=== PATIENT | female | born 1950 | race Caucasian/White ===

== ENCOUNTER 2020-04-22 10:14 | Inpatient (IN) ==
[2020-04-22 10:49] LABS: ABS Basophils 0.1 10^3/ul (0-0.2); ABS Lymphocytes 0.3 10^3/ul (1.0-4.8); ABS Monocytes 0.9 10^3/ul (0-0.8); Eosinophil % 0.1 %; Hematocrit 33 % (35-47); Hemoglobin 11.1 g/dL (12.0-16.0); Mean Corpuscular HGB Conc 33 g/dL (31-36); Mean Corpuscular Hemoglobin 31 pg (27-31); Mean Corpuscular Volume 92 fL (80-97); Mean Platelet Volume 6.9 fL (7.4-10.4); Platelet Count 202 10^3/uL (150-450); Red Blood Count 3.63 10^6 /uL (3.70-4.87); Red Cell Distribution Width 16 % (10-15); White Blood Count 15.2 10^3/uL (3.5-10.8)
[2020-04-22 10:59] LABS: Activated Partial Thrombo Time 30.7 seconds (26.0-38.0); INR 2.22 (0.82-1.09)
[2020-04-22 11:08] LABS: Troponin I 0.01 ng/mL (<0.03)
[2020-04-22 11:10] LABS: CKMB ng/mL 2.4 ng/mL (0.6-6.3)
[2020-04-22 11:17] LABS: Albumin 3.1 g/dL (3.2-5.2); Albumin/Globulin Ratio 0.9 (1-3); BUN/Creatinine Ratio 17.4 (8-20); C Reactive Protein 121.8 mg/L (<8.01); Calcium 9.1 mg/dL (8.6-10.3); EGFR African American 102.4 (>60); EGFR Non-African American 84.6 (>60); Globulin 3.3 g/dL (2-4); Potassium 3.8 mmol/L (3.5-5.0); Total Bilirubin 0.6 mg/dL (0.2-1.0); Total Protein 6.4 g/dL (6.4-8.9)
[2020-04-22] MEDS ORDERED: Azithromycin 500 mg/250 ml NS 500 MG/250 ML BAG IVPB ONE (12:08)
[2020-04-22] MEDS ORDERED: cefTRIAXone 1 gm/50 mL NS BAG 1 GM/50 ML BAG IV ONE (12:08)
[2020-04-22] MEDS ORDERED: Albuterol/Ipratropium NEB.SOL (2.5/0.5 MG) 3 ML NEB.SOLN INH ONE (12:23)
[2020-04-22 13:16] LABS: Urine Appearance Clear; Urine Bilirubin Negative (Negative); Urine Blood 2+ (Negative); Urine Color Yellow; Urine Glucose Negative (Negative); Urine Ketones Negative (Negative); Urine Nitrite Negative (Negative); Urine Protein Negative (Negative); Urine Specific Gravity 1.009 (1.010-1.030); Urine Urobilinogen Negative (Negative)
[2020-04-22 13:36] LABS: Urine Bacteria Absent (Absent); Urine Red Blood Cell 3+(>10/hpf) (Absent); Urine Squamous Epithelial Cell Present (Absent); Urine White Blood Cell Trace(0-5/hpf) (Absent)
[2020-04-22] MEDS ORDERED: NS 0.9% IV ONE (14:15)
[2020-04-22] MEDS: Cefepime 2 GM in Dextrose(*) 2 GM/50 ML BAG IV SCH (15:47)
[2020-04-22] MEDS ORDERED: NS 0.9% 1000 ml BAG 1,000 ML IV ONE (17:23)
[2020-04-22] MEDS: Mometasone/Formoter 200/5 MDI INH SCH (20:03)
[2020-04-22] MEDS: Morphine ER 30 mg TAB (*) ** extended release PO SCH (20:03)
[2020-04-22] MEDS ORDERED: NS 0.9% 500 ml BAG 500 ML IV ONE (21:09)
[2020-04-22] MEDS ORDERED: Vancomycin(*) 1,000 MG in NS 0.9% 250 ml 250 ML IVPB ONE (21:12)
[2020-04-22] MEDS: LORazepam 0.5 mg TAB (*) PO PRN (21:45)
[2020-04-22] MEDS ORDERED: Vancomycin per Pharmacy 1 EA NOTE FOLLOW UP SCH (22:00)
[2020-04-22] MEDS ORDERED: Vancomycin(*) 750 MG in NS 0.9% 250 ml 250 ML IVPB ONE (22:00)
[2020-04-23] MEDS ORDERED: NS 0.9% 500 ml BAG 500 ML IV ONE (00:50)
[2020-04-23] MEDS: Cefepime 2 GM in Dextrose(*) 2 GM/50 ML BAG IV SCH ×2 (03:03→15:34)
[2020-04-23] MEDS: Ondansetron 4 mg VIAL 2 MG/ML 2 ml VIAL IV PRN ×2 (03:41→16:04)
[2020-04-23] MEDS: LORazepam 0.5 mg TAB (*) PO PRN (03:41)
[2020-04-23 04:52] LABS: ABS Lymphocytes 0.3 10^3/ul (1.0-4.8); ABS Monocytes 0.8 10^3/ul (0-0.8); Eosinophil % 0.2 %; Hematocrit 30 % (35-47); Hemoglobin 9.9 g/dL (12.0-16.0); Lymphocyte % 2.5 %; Mean Corpuscular HGB Conc 33 g/dL (31-36); Mean Corpuscular Hemoglobin 31 pg (27-31); Mean Corpuscular Volume 92 fL (80-97); Mean Platelet Volume 7.2 fL (7.4-10.4); Platelet Count 181 10^3/uL (150-450); Red Blood Count 3.23 10^6 /uL (3.70-4.87); Red Cell Distribution Width 16 % (10-15); White Blood Count 13.1 10^3/uL (3.5-10.8)
[2020-04-23 05:14] LABS: BUN/Creatinine Ratio 17.5 (8-20); EGFR African American 127.6 (>60); EGFR Non-African American 105.5 (>60); Potassium 3.4 mmol/L (3.5-5.0)
[2020-04-23] MEDS ORDERED: VANCOMYCIN IVPB SCH (06:00)
[2020-04-23] MEDS ORDERED: NS 0.9% IVPB SCH (06:00)
[2020-04-23] MEDS: KCL 10 MEQ/50 ML IVPREMIX 10 MEQ/50 ML BAG IV SCH ×3 (06:03→10:01)
[2020-04-23] MEDS: Mometasone/Formoter 200/5 MDI INH SCH (07:55)
[2020-04-23] MEDS: Morphine ER 30 mg TAB (*) ** extended release PO SCH ×2 (08:02→20:57)
[2020-04-23] MEDS ORDERED: Furosemide 20 mg/2 ml IV VIAL IV SLOW PU ONE (09:00)
[2020-04-23] MEDS: Vancomycin(*) 500 MG in NS 0.9% 250 ml 250 ML IVPB SCH ×2 (15:34→22:06)
[2020-04-23] MEDS ORDERED: LORazepam 0.5 mg TAB (*) PO PRN (16:11)
[2020-04-24] MEDS: Mometasone/Formoter 200/5 MDI INH SCH ×3 (00:44→19:49)
[2020-04-24] MEDS: Cefepime 2 GM in Dextrose(*) 2 GM/50 ML BAG IV SCH ×2 (03:15→15:04)
[2020-04-24 05:11] LABS: ABS Lymphocytes 0.3 10^3/ul (1.0-4.8); ABS Monocytes 0.9 10^3/ul (0-0.8); Eosinophil % 0.3 %; Hematocrit 31 % (35-47); Lymphocyte % 2.5 %; Mean Corpuscular HGB Conc 33 g/dL (31-36); Mean Corpuscular Hemoglobin 30 pg (27-31); Mean Corpuscular Volume 93 fL (80-97); Mean Platelet Volume 7.1 fL (7.4-10.4); Platelet Count 191 10^3/uL (150-450); Red Blood Count 3.33 10^6 /uL (3.70-4.87); Red Cell Distribution Width 16 % (10-15); White Blood Count 13.3 10^3/uL (3.5-10.8)
[2020-04-24 05:29] LABS: BUN/Creatinine Ratio 19.3 (8-20); Calcium 8.5 mg/dL (8.6-10.3); EGFR African American 127.6 (>60); EGFR Non-African American 105.5 (>60); Potassium 3.7 mmol/L (3.5-5.0)
[2020-04-24] MEDS ORDERED: Vancomycin Trough Check NOTE FOLLOW UP ONE (05:30)
[2020-04-24] MEDS: Vancomycin(*) 500 MG in NS 0.9% 250 ml 250 ML IVPB SCH ×3 (06:15→21:08)
[2020-04-24] MEDS: Morphine ER 30 mg TAB (*) ** extended release PO SCH ×2 (08:24→20:41)
[2020-04-24] MEDS: Ondansetron 4 mg VIAL 2 MG/ML 2 ml VIAL IV PRN ×2 (13:44→20:45)
[2020-04-24] MEDS: Morphine ORAL CONCENTRATE 5 MG/0.25 ML ORAL.SYRIN PO PRN (16:41)
[2020-04-24] MEDS: LORazepam 0.5 mg TAB (*) PO PRN (19:20)
[2020-04-25] MEDS: Morphine ORAL CONCENTRATE 5 MG/0.25 ML ORAL.SYRIN PO PRN ×6 (00:33→12:50)
[2020-04-25] MEDS: LORazepam 0.5 mg TAB (*) PO PRN ×2 (01:34→05:18)
[2020-04-25] MEDS: Albuterol 2.5mg/3 ml (0.083%) NEB.SOLN INH PRN (01:44)
[2020-04-25] MEDS: Cefepime 2 GM in Dextrose(*) 2 GM/50 ML BAG IV SCH ×2 (02:59→15:16)
[2020-04-25] MEDS: Vancomycin(*) 500 MG in NS 0.9% 250 ml 250 ML IVPB SCH (05:20)
[2020-04-25 05:26] LABS: ABS Eosinophils 0.1 10^3/ul (0-0.6); ABS Lymphocytes 0.4 10^3/ul (1.0-4.8); ABS Monocytes 0.7 10^3/ul (0-0.8); Eosinophil % 0.4 %; Hematocrit 30 % (35-47); Hemoglobin 9.8 g/dL (12.0-16.0); Mean Corpuscular HGB Conc 33 g/dL (31-36); Mean Corpuscular Hemoglobin 31 pg (27-31); Mean Corpuscular Volume 92 fL (80-97); Mean Platelet Volume 7.1 fL (7.4-10.4); Nucleated Red Blood Cells % 0.1; Platelet Count 191 10^3/uL (150-450); Red Cell Distribution Width 16 % (10-15); White Blood Count 12.8 10^3/uL (3.5-10.8)
[2020-04-25 05:41] LABS: BUN/Creatinine Ratio 21.8 (8-20); Calcium 8.7 mg/dL (8.6-10.3); EGFR Non-African American 109.9 (>60); Potassium 3.5 mmol/L (3.5-5.0)
[2020-04-25] MEDS: Morphine ER 30 mg TAB (*) ** extended release PO SCH ×3 (07:22→23:05)
[2020-04-25 07:39] LABS: Albumin 2.7 g/dL (3.2-5.2); Globulin 2.8 g/dL (2-4); Magnesium 1.7 mg/dL (1.9-2.7); Phosphorus 2.5 mg/dL (2.5-5.0); Total Bilirubin 0.5 mg/dL (0.2-1.0); Total Protein 5.5 g/dL (6.4-8.9)
[2020-04-25] MEDS: Mometasone/Formoter 200/5 MDI INH SCH ×2 (08:11→19:03)
[2020-04-25] MEDS ORDERED: Enoxaparin 40 MG/0.4 ML SYR(*) SUBCUT ONE (09:41)
[2020-04-25] MEDS ORDERED: Morphine ORAL CONCENTRATE 5 MG/0.25 ML ORAL.SYRIN PO ONE (10:27)
[2020-04-25] MEDS ORDERED: Morphine ER 30 mg TAB (*) ** extended release PO SCH ×3 (11:00→14:00)
[2020-04-25] MEDS: LORazepam 0.5 mg TAB (*) PO SCH ×2 (14:11→23:40)
[2020-04-25] MEDS ORDERED: Morphine ER 15 mg (*) ** extended release PO SCH (18:00)
[2020-04-25] MEDS: Morphine ER 15 mg (*) ** extended release PO SCH ×2 (18:16→23:05)
[2020-04-26] MEDS: Morphine ORAL CONCENTRATE 5 MG/0.25 ML ORAL.SYRIN PO PRN ×5 (00:27→20:20)
[2020-04-26] MEDS: LORazepam 0.5 mg TAB (*) PO PRN (01:41)
[2020-04-26] MEDS: Cefepime 2 GM in Dextrose(*) 2 GM/50 ML BAG IV SCH (02:52)
[2020-04-26] MEDS: Morphine ER 30 mg TAB (*) ** extended release PO SCH ×3 (05:29→18:27)
[2020-04-26] MEDS ORDERED: Vancomycin Trough Check NOTE FOLLOW UP ONE (05:30)
[2020-04-26 06:05] LABS: ABS Eosinophils 0.1 10^3/ul (0-0.6); ABS Lymphocytes 0.4 10^3/ul (1.0-4.8); ABS Monocytes 0.9 10^3/ul (0-0.8); Eosinophil % 0.6 %; Hematocrit 30 % (35-47); Lymphocyte % 3.7 %; Mean Corpuscular HGB Conc 33 g/dL (31-36); Mean Corpuscular Hemoglobin 31 pg (27-31); Mean Corpuscular Volume 93 fL (80-97); Mean Platelet Volume 6.9 fL (7.4-10.4); Platelet Count 203 10^3/uL (150-450); Red Blood Count 3.22 10^6 /uL (3.70-4.87); Red Cell Distribution Width 16 % (10-15); White Blood Count 12.3 10^3/uL (3.5-10.8)
[2020-04-26 06:20] LABS: Albumin 2.8 g/dL (3.2-5.2); BUN/Creatinine Ratio 22.2 (8-20); Calcium 8.7 mg/dL (8.6-10.3); EGFR African American 135.8 (>60); EGFR Non-African American 112.3 (>60); Globulin 2.9 g/dL (2-4); Magnesium 1.8 mg/dL (1.9-2.7); Phosphorus 2.8 mg/dL (2.5-5.0); Potassium 3.7 mmol/L (3.5-5.0); Total Bilirubin 0.4 mg/dL (0.2-1.0); Total Protein 5.7 g/dL (6.4-8.9)
[2020-04-26 06:31] LABS: INR 1.48 (0.82-1.09)
[2020-04-26] MEDS: Mometasone/Formoter 200/5 MDI INH SCH ×2 (07:25→19:05)
[2020-04-26] MEDS: LORazepam 0.5 mg TAB (*) PO SCH ×3 (08:58→20:16)
[2020-04-26] MEDS: cefTRIAXone 1 gm/50 mL NS BAG 1 GM/50 ML BAG IVPB SCH (11:23)
[2020-04-26] MEDS ORDERED: fentaNYL 100 mcg/2 ml 50 MCG/ML VIAL ONE (13:02)
[2020-04-26] MEDS: Morphine ER 15 mg (*) ** extended release PO SCH (18:27)
[2020-04-27] MEDS: Morphine ER 15 mg (*) ** extended release PO SCH ×2 (00:01→17:40)
[2020-04-27] MEDS: Morphine ER 30 mg TAB (*) ** extended release PO SCH ×4 (00:01→17:40)
[2020-04-27] MEDS: Morphine ORAL CONCENTRATE 5 MG/0.25 ML ORAL.SYRIN PO PRN ×2 (05:00→09:24)
[2020-04-27] MEDS: LORazepam 0.5 mg TAB (*) PO SCH ×4 (06:23→20:12)
[2020-04-27] MEDS: Mometasone/Formoter 200/5 MDI INH SCH ×2 (07:16→23:35)
[2020-04-27] MEDS: cefTRIAXone 1 gm/50 mL NS BAG 1 GM/50 ML BAG IVPB SCH (09:24)
[2020-04-28] MEDS: Morphine ER 30 mg TAB (*) ** extended release PO SCH ×5 (01:17→23:53)
[2020-04-28] MEDS: Morphine ER 15 mg (*) ** extended release PO SCH ×3 (01:17→23:53)
[2020-04-28] MEDS: Morphine ORAL CONCENTRATE 5 MG/0.25 ML ORAL.SYRIN PO PRN ×4 (02:29→14:53)
[2020-04-28] MEDS: Mometasone/Formoter 200/5 MDI INH SCH ×3 (02:51→19:11)
[2020-04-28 08:06] VITALS: BP 110/60
[2020-04-28] MEDS: LORazepam 0.5 mg TAB (*) PO SCH ×3 (08:18→23:54)
[2020-04-28] MEDS ORDERED: Ondansetron ODT 4 mg TAB 4 MG TAB SL PRN (09:18)
[2020-04-28] MEDS: Polyethylene Glycol 3350 17 GM PACKET PO SCH (11:08)
[2020-04-28] MEDS: Nystatin SUSPENSION 100,000 UNITS/ML UDC PO SCH ×3 (14:52→23:56)
[2020-04-29] MEDS: Morphine ORAL CONCENTRATE 5 MG/0.25 ML ORAL.SYRIN PO PRN ×4 (07:46→21:28)
[2020-04-29] MEDS: Morphine ER 30 mg TAB (*) ** extended release PO SCH ×4 (07:46→23:46)
[2020-04-29] MEDS: Mometasone/Formoter 200/5 MDI INH SCH ×3 (08:38→19:23)
[2020-04-29] MEDS: LORazepam 0.5 mg TAB (*) PO SCH ×3 (09:27→21:14)
[2020-04-29] MEDS: Nystatin SUSPENSION 100,000 UNITS/ML UDC PO SCH ×4 (09:27→21:14)
[2020-04-29] MEDS: Polyethylene Glycol 3350 17 GM PACKET PO SCH (09:28)
[2020-04-29] MEDS: Morphine ER 15 mg (*) ** extended release PO SCH ×2 (17:39→23:46)
[2020-04-29] MEDS: Albuterol 2.5mg/3 ml (0.083%) NEB.SOLN INH PRN (19:22)
[2020-04-29] MEDS ORDERED: Acetaminoph/Cod 120/12 mg LIQ 5 ML UDC PO PRN (21:51)
[2020-04-30] MEDS: Morphine ORAL CONCENTRATE 5 MG/0.25 ML ORAL.SYRIN PO PRN ×7 (01:33→08:51)
[2020-04-30] MEDS: Morphine ER 30 mg TAB (*) ** extended release PO SCH (05:12)
[2020-04-30] MEDS: Mometasone/Formoter 200/5 MDI INH SCH (07:17)
[2020-04-30] MEDS: LORazepam 0.5 mg TAB (*) PO SCH (08:01)
[2020-04-30] MEDS: Nystatin SUSPENSION 100,000 UNITS/ML UDC PO SCH (08:02)
[2020-04-30] MEDS: Polyethylene Glycol 3350 17 GM PACKET PO SCH (08:02)
== END 2020-04-30 08:58 | disposition hospice, home (50) | DRG 871 ==
LOC: ED 10:14 → MED 13:38 → ICU 04-23 04:21
PROVIDERS: ADMIT Hospitalist; ATTEND Internal Medicine